=== PATIENT | male | born 1930 | race Caucasian/White ===

== ENCOUNTER 2018-11-01 10:15 | Day surgery (SDC) | payer MEDICARE ==
[2012-06-20 11:17] VITALS: BP 161/89
[2018-11-01] MEDS ORDERED: Sodium Chloride 0.9(Preservative Free) 10 ML IJ ONE (10:16)
[2018-11-01] MEDS ORDERED: Depo-Medrol 40 MG/ML IM ONE (10:16)
[2018-11-01] MEDS ORDERED: DIPRIVAN 200 MG/20 ML IV ONE (10:16)
[2018-11-01] MEDS ORDERED: Xylocaine 1% Vial 30 ML PF IJ ONE (10:16)
[2018-11-01] MEDS ORDERED: Ketamine HCl 50 MG/ML IJ ONE (10:16)
[2018-11-01] MEDS ORDERED: Lactated Ringers 1,000 ML IV ONE (13:03)
--- NOTE | 2018-11-01 13:16 | XRAY ---
38 seconds fluoroscopy time in surgery for left L4-S1 transforaminal MARZENA.
--- NOTE | 2018-11-01 13:19 | XRAY ---
Indication: L4-S1 MARZENA. Intraoperative fluoroscopy was provided for 38 seconds. 3 digital spot images submitted for interpretation demonstrates posterior needle tips projecting over the expected course of the left L4 and L5 nerve roots. Small amount of contrast injected for needle tip placement. Correlate with intraoperative findings/report.
== END 2018-11-01 12:02 | disposition home or self-care (01) ==
LOC: SDC-PAIN 10:15
PROVIDERS: ATTEND Psychiatry & Neurology Pain Medicine
DX: M54.16 Radiculopathy, lumbar region (principal); Z79.899 Other long term (current) drug therapy; I10 Essential (primary) hypertension; E78.5 Hyperlipidemia, unspecified
CPT/HCPCS: 72020; 77003; 99100; J1030; J2001; J2704

== ENCOUNTER 2019-04-04 12:11 | Day surgery (SDC) | payer MEDICARE ==
[2012-06-20 11:17] VITALS: BP 161/89
[2019-04-04] MEDS ORDERED: Depo-Medrol 40 MG/ML IM ONE (12:12)
[2019-04-04] MEDS ORDERED: Marcaine 0.5% SDV 10 ML IJ ONE (12:12)
[2019-04-04] MEDS ORDERED: Ketamine HCl 50 MG/ML ONE (13:21)
[2019-04-04] MEDS ORDERED: DIPRIVAN 200 MG/20 ML IV ONE (13:21)
[2019-04-04] MEDS ORDERED: Lactated Ringers 1,000 ML IV ONE (13:22)
--- NOTE | 2019-04-04 14:55 | XRAY ---
33 seconds fluoroscopy time in surgery for bilateral SI joint injections.
--- NOTE | 2019-04-04 15:03 | XRAY ---
Indication: Bilateral SI joint injection. Intraoperative fluoroscopy was provided for 33 seconds. 5 digital spot image submitted for interpretation demonstrates posterior needle tip projecting over the inferior left and right SI joints. Correlate with intraoperative findings/report.
== END 2019-04-04 13:51 | disposition home or self-care (01) ==
LOC: SDC-PAIN 12:11
PROVIDERS: ATTEND Psychiatry & Neurology Pain Medicine
DX: M46.1 Sacroiliitis, not elsewhere classified (principal); I10 Essential (primary) hypertension; E78.5 Hyperlipidemia, unspecified; Z79.899 Other long term (current) drug therapy
CPT/HCPCS: 27096; 72202; 77002; 99100; J1030; J2704; G0260

== ENCOUNTER 2019-09-19 13:45 | Day surgery (SDC) | payer MEDICARE ==
[2012-06-20 11:17] VITALS: BP 161/89
[2019-09-19] MEDS ORDERED: Xylocaine 1% Vial 30 ML PF IJ ONE (13:46)
[2019-09-19] MEDS ORDERED: Depo-Medrol 40 MG/ML IM ONE (13:46)
[2019-09-19] MEDS ORDERED: Marcaine 0.5% SDV 10 ML IJ ONE (13:46)
--- NOTE | 2019-09-19 16:37 | XRAY ---
11 seconds of fluoroscopy was used in surgery for bilateral SI joint injection.
--- NOTE | 2019-09-19 16:47 | XRAY ---
Indication: Bilateral SI joint injection. Intraoperative fluoroscopy was provided for 11 seconds. 4 digital spot images submitted for interpretation demonstrates needle tip projecting over the inferior left and right SI joints. Correlate with intraoperative findings/report.
== END 2019-09-19 15:07 | disposition home or self-care (01) ==
LOC: SDC-PAIN 13:45
PROVIDERS: ATTEND Psychiatry & Neurology Pain Medicine
DX: M46.1 Sacroiliitis, not elsewhere classified (principal); I10 Essential (primary) hypertension; E78.5 Hyperlipidemia, unspecified; Z79.899 Other long term (current) drug therapy
CPT/HCPCS: 27096; 72202; 77002; J1030; J2001; G0260

== ENCOUNTER 2020-03-26 11:28 | Day surgery (SDC) | payer MEDICARE ==
[2012-06-20 11:17] VITALS: BP 161/89
[2020-03-26] MEDS ORDERED: Depo-Medrol 40 MG/ML IM ONE (11:29)
[2020-03-26] MEDS ORDERED: Sodium Chloride 0.9(Preservative Free) 10 ML IJ ONE (11:29)
[2020-03-26] MEDS ORDERED: BUPIVACAINE 0.5% VIAL IJ ONE (11:29)
[2020-03-26] MEDS ORDERED: DIPRIVAN 200 MG/20 ML IV ONE (12:53)
[2020-03-26] MEDS ORDERED: Ketamine HCl 50 MG/ML ONE (12:53)
[2020-03-26] MEDS ORDERED: Lactated Ringers 1,000 ML IV ONE (14:26)
--- NOTE | 2020-03-26 14:57 | XRAY ---
Indication: Bilateral SI joint injection. Intraoperative fluoroscopy was provided for 23 seconds. 4 digital spot images submitted for interpretation demonstrates posterior needle tip projecting over the inferior left and right SI joint. Correlate with intraoperative findings/report.
--- NOTE | 2020-03-26 14:57 | XRAY ---
Indication: Left L4-S1 transforaminal MARZENA. Intraoperative fluoroscopy was provided for 39 seconds. 5 digital spot images submitted for interpretation demonstrates posterior needle tips projecting over the expected course of the left L4 and L5 nerve roots. Small amount of contrast injected for needle tip placement. Correlate with intraoperative findings/report.
--- NOTE | 2020-03-26 15:02 | XRAY ---
39 seconds fluoroscopy time in surgery for left L4-S1 transforaminal MARZENA.
--- NOTE | 2020-03-26 15:02 | XRAY ---
23 seconds fluoroscopy time in surgery for bilateral SI joint injections.
== END 2020-03-26 13:30 | disposition home or self-care (01) ==
LOC: SDC-PAIN 11:28
PROVIDERS: ATTEND Psychiatry & Neurology Pain Medicine
DX: M54.16 Radiculopathy, lumbar region (principal); M46.1 Sacroiliitis, not elsewhere classified; I10 Essential (primary) hypertension; E78.5 Hyperlipidemia, unspecified; Z79.899 Other long term (current) drug therapy
CPT/HCPCS: 64483; 64484; 64625; 72100; 72202; 77002; 77003; 99100; J1030; J2704; Q9966